=== PATIENT | female | born 1950 | race Caucasian/White ===

== ENCOUNTER 2021-11-18 14:42 | Outpatient (CLI) | payer MEDICARE ==
[2021-11-18 17:08] LABS: Hemoglobin 13.8 g/dL (12.0-15.5)
[2021-11-18 17:31] LABS: Anion Gap 14 mmol/L (10-20); BUN (Urea Nitrogen) 17 mg/dL (9.8-20.1); Calc. Creatinine Clearance 0 mL/min (70-130); Calcium 9.4 mg/dL (7.8-10.44); Carbon Dioxide 23 mmol/L (23-31); Chloride 101 mmol/L (98-107); Estimated GFR 84; Glucose 172 mg/dL (83-110); Potassium 4.2 mmol/L (3.5-5.1); Sodium 134 mmol/L (136-145)
== END 2021-11-18 14:43 | disposition home or self-care (01) ==
LOC: CSHLAB 14:42
PROVIDERS: ATTEND Otolaryngology Otolaryngic Allergy
DX: Z01.812 Encounter for preprocedural laboratory examination (principal); Z20.822 Contact with and (suspected) exposure to COVID-19; G47.33 Obstructive sleep apnea (adult) (pediatric)
CPT/HCPCS: 80048; 85014; 85018; 87811

== ENCOUNTER 2022-01-22 14:19 | Emergency (ER) | payer MEDICARE ==
[2022-01-22 16:02] LABS: #Basophils 0.1 10x3/uL (0.0-0.2); #Eosinphils 0.1 10x3/uL (0.0-0.5); #Monocytes 0.3 10x3/uL (0.0-1.1); #Neutrophils 2.5 10x3/uL (1.5-8.4); %Basophils 1.1 % (0.0-2.0); %Eosinophils 2.7 % (0.0-6.0); %Lymphocytes 33.6 % (18.0-47.0); %Monocytes 5.7 % (0.0-10.0); %Neutrophils 56.7 % (40.0-75.0); Hemoglobin 13.5 g/dL (12.0-15.5); Mean Corpuscular HGB CONC 34.6 g/dL (32.0-36.0); Mean Corpuscular Hemoglobin 30.2 pg (27.0-33.0); Mean Corpuscular Volume 87.2 fl (81.6-98.3); Mean Platelet Volume 10.3 fl (7.4-10.4); Platelet Count 207 10x3/uL (150-450); RBC Distribution Width 11.9 % (11.5-14.5); Red Blood Cell (RBC) Count 4.47 10x6/uL (3.90-5.03); White Blood Cell (WBC) Count 4.4 10x3/uL (3.5-10.5)
[2022-01-22 16:21] LABS: ALT (SGPT) 17 U/L (8-55); AST (SGOT) 20 U/L (5-34); Albumin 4.2 g/dL (3.4-4.8); Alkaline Phosphatase 79 U/L (40-110); Anion Gap 15 mmol/L (10-20); BUN (Urea Nitrogen) 22 mg/dL (9.8-20.1); Bilirubin, Total 0.5 mg/dL (0.2-1.2); Calc. Creatinine Clearance 0 mL/min (70-130); Calcium 9.4 mg/dL (7.8-10.44); Carbon Dioxide 25 mmol/L (23-31); Chloride 101 mmol/L (98-107); Estimated GFR 63; Globulin 2.6 g/dL (2.4-3.5); Glucose 97 mg/dL (83-110); Potassium 4.1 mmol/L (3.5-5.1); Protein, Total 6.8 g/dL (5.8-8.1); Sodium 137 mmol/L (136-145)
[2022-01-22 17:23] LABS: Bilirubin Neg (Negative); Blood, Urine Negative (Negative); Clarity Sl. Cloudy (Clear); Glucose, Urine (Dipstick) Normal (Negative); Ketone, Urine Negative (Negative); Leukocyte 500 (Negative); Nitrite Negative (Negative); Protein, Urine (Dipstick) 15 mg/dl (Neg-Trace); Urobilinogen Normal mg/dL (Less than 2)
[2022-01-22 17:29] LABS: RBC/HPF 0-3 HPF (0-3)
[2022-01-22 17:30] LABS: Bacteria/HPF Rare-Few HPF (None Seen); Mucous/LPF 1+ LPF (<2+)
== END 2022-01-22 17:47 | disposition home or self-care (01) ==
LOC: CSHERS 14:19
DX: N39.0 Urinary tract infection, site not specified (principal); M19.90 Unspecified osteoarthritis, unspecified site; E03.9 Hypothyroidism, unspecified; E78.00 Pure hypercholesterolemia, unspecified; I10 Essential (primary) hypertension
CPT/HCPCS: 36416; 70450; 80053; 81003; 81015; 85025; 93005

== ENCOUNTER 2022-04-06 15:26 | Outpatient (CLI) | payer MEDICARE ==
[2022-04-06 16:20] LABS: Hemoglobin 13.2 g/dL (12.0-15.5)
[2022-04-06 16:49] LABS: Anion Gap 18 mmol/L (10-20); BUN (Urea Nitrogen) 33 mg/dL (9.8-20.1); Calc. Creatinine Clearance 0 mL/min (70-130); Calcium 9.3 mg/dL (7.8-10.44); Carbon Dioxide 23 mmol/L (23-31); Chloride 103 mmol/L (98-107); Estimated GFR 75; Glucose 93 mg/dL (83-110); Sodium 140 mmol/L (136-145)
== END 2022-04-06 15:27 | disposition home or self-care (01) ==
LOC: CSHLAB 15:26
PROVIDERS: ATTEND Obstetrics & Gynecology
DX: Z01.818 Encounter for other preprocedural examination (principal)
CPT/HCPCS: 80048; 85014; 85018; 93005; 93010

== ENCOUNTER 2022-06-08 09:34 | Outpatient (CLI) | payer MEDICARE ==
[2022-06-08 11:09] LABS: Hemoglobin 13.8 g/dL (12.0-15.5); Mean Corpuscular Hemoglobin 30.6 pg (27.0-33.0); Mean Corpuscular Volume 92.7 fl (81.6-98.3); Mean Platelet Volume 10.3 fl (7.4-10.4); Platelet Count 248 10x3/uL (150-450); RBC Distribution Width 12.8 % (11.5-14.5); Red Blood Cell (RBC) Count 4.51 10x6/uL (3.90-5.03); White Blood Cell (WBC) Count 4.5 10x3/uL (3.5-10.5)
[2022-06-08 11:40] LABS: Anion Gap 15 mmol/L (10-20); BUN (Urea Nitrogen) 24 mg/dL (9.8-20.1); Calc. Creatinine Clearance 0 mL/min (70-130); Calcium 9.4 mg/dL (7.8-10.44); Carbon Dioxide 25 mmol/L (23-31); Chloride 105 mmol/L (98-107); Estimated GFR 64; Glucose 120 mg/dL (83-110); Potassium 4.8 mmol/L (3.5-5.1); Sodium 140 mmol/L (136-145)
== END 2022-06-08 09:35 | disposition home or self-care (01) ==
LOC: CSHLAB 09:34
PROVIDERS: ATTEND Otolaryngology Otolaryngic Allergy
DX: Z01.818 Encounter for other preprocedural examination (principal); G47.33 Obstructive sleep apnea (adult) (pediatric)
CPT/HCPCS: 80048; 85027; 93005; 93010

== ENCOUNTER 2022-06-13 06:40 | Day surgery (SDC) | payer MEDICARE ==
[2022-06-09 11:50] VITALS: BMI 32.9
[2022-06-13] MEDS ORDERED: PROPOFOL 20 ML ONE (08:02)
== END 2022-06-13 08:55 | disposition home or self-care (01) ==
LOC: CSHSDC 06:40
PROVIDERS: ATTEND Otolaryngology Otolaryngic Allergy
PROC: 4A1ZXQZ Monitoring of Sleep, External Approach (ICD-10-PCS; principal; 2022-06-13)
DX: G47.33 Obstructive sleep apnea (adult) (pediatric) (principal); I25.10 Atherosclerotic heart disease of native coronary artery without angina pectoris; I10 Essential (primary) hypertension; E11.9 Type 2 diabetes mellitus without complications; E03.9 Hypothyroidism, unspecified; K21.9 Gastro-esophageal reflux disease without esophagitis; E66.9 Obesity, unspecified; Z68.32 Body mass index [BMI] 32.0-32.9, adult; Z79.84 Long term (current) use of oral hypoglycemic drugs; Z79.890 Hormone replacement therapy; Z79.899 Other long term (current) drug therapy; Z90.710 Acquired absence of both cervix and uterus
CPT/HCPCS: J2704

== ENCOUNTER 2022-06-29 09:17 | Observation (INO) | payer MEDICARE ==
[2022-06-29 10:22] LABS: #Basophils 0.1 10x3/uL (0.0-0.2); #Eosinphils 0.2 10x3/uL (0.0-0.5); #Monocytes 0.4 10x3/uL (0.0-1.1); #Neutrophils 4.9 10x3/uL (1.5-8.4); %Basophils 0.7 % (0.0-2.0); %Eosinophils 2.2 % (0.0-6.0); %Lymphocytes 20.6 % (18.0-47.0); %Monocytes 5.4 % (0.0-10.0); %Neutrophils 70.8 % (40.0-75.0); Hemoglobin 13.3 g/dL (12.0-15.5); Mean Corpuscular HGB CONC 34.3 g/dL (32.0-36.0); Mean Corpuscular Hemoglobin 30.7 pg (27.0-33.0); Mean Corpuscular Volume 89.6 fl (81.6-98.3); Platelet Count 222 10x3/uL (150-450); RBC Distribution Width 12.3 % (11.5-14.5); Red Blood Cell (RBC) Count 4.33 10x6/uL (3.90-5.03); White Blood Cell (WBC) Count 6.9 10x3/uL (3.5-10.5)
[2022-06-29 10:40] LABS: ALT (SGPT) 20 U/L (8-55); AST (SGOT) 17 U/L (5-34); Albumin 4.1 g/dL (3.4-4.8); Alkaline Phosphatase 81 U/L (40-110); Anion Gap 16 mmol/L (10-20); BUN (Urea Nitrogen) 20 mg/dL (9.8-20.1); Bilirubin, Total 0.4 mg/dL (0.2-1.2); Calc. Creatinine Clearance 0 mL/min (70-130); Calcium 9.4 mg/dL (7.8-10.44); Carbon Dioxide 25 mmol/L (23-31); Chloride 106 mmol/L (98-107); Estimated GFR 75; Globulin 2.6 g/dL (2.4-3.5); Glucose 156 mg/dL (83-110); Potassium 3.7 mmol/L (3.5-5.1); Protein, Total 6.7 g/dL (5.8-8.1); Sodium 143 mmol/L (136-145)
[2022-06-29 10:54] LABS: Bilirubin Neg (Negative); Blood, Urine Negative (Negative); Clarity Clear (Clear); Glucose, Urine (Dipstick) Normal (Negative); Ketone, Urine Negative (Negative); Leukocyte Negative (Negative); Nitrite Negative (Negative); Protein, Urine (Dipstick) 15 mg/dl (Neg-Trace); Specific Gravity, Urine 1.015 (1.005-1.030); Urobilinogen Normal mg/dL (Less than 2); pH, Urine 6.5 (5.0-9.0)
[2022-06-29] MEDS ORDERED: Ondansetron PF 4 MG/2 ML Vial IVP PRN (14:13)
[2022-06-29] MEDS ORDERED: Acetaminophen 500 MG TAB ONE (15:50)
[2022-06-29] MEDS ORDERED: HumaLOG 300 UNITS/3 ML VIAL SC PRN (17:06)
[2022-06-29] MEDS ORDERED: Dextrose 5% in Water 1,000 ML IV PRN (17:06)
[2022-06-29] MEDS ORDERED: Dextrose 50% Abboject 50 ML SYRINGE SLOW IVP PRN (17:06)
[2022-06-29] MEDS: Sodium Chloride 0.9% 1,000 ML IV SCH (18:30)
[2022-06-29 19:54] VITALS: BMI 34.2
[2022-06-29] MEDS ORDERED: Gabapentin 300 MG CAP PO SCH (22:30)
[2022-06-29] MEDS ORDERED: Losartan Potassium 50 MG TAB PO SCH (22:30)
[2022-06-29] MEDS: Carvedilol 12.5 MG TAB PO SCH (23:14)
[2022-06-29] MEDS: Acetaminophen 325 MG TAB PO PRN (23:55)
[2022-06-30] MEDS: Sodium Chloride 0.9% 1,000 ML IV SCH (05:42)
[2022-06-30] MEDS ORDERED: Levothyroxine Sodium 112 MCG TAB PO SCH (06:00)
[2022-06-30 06:04] LABS: #Basophils 0.1 10x3/uL (0.0-0.2); #Eosinphils 0.2 10x3/uL (0.0-0.5); #Monocytes 0.4 10x3/uL (0.0-1.1); #Neutrophils 4.4 10x3/uL (1.5-8.4); %Basophils 1.2 % (0.0-2.0); %Eosinophils 2.7 % (0.0-6.0); %Lymphocytes 22.5 % (18.0-47.0); %Monocytes 6.2 % (0.0-10.0); %Neutrophils 67.2 % (40.0-75.0); Mean Corpuscular HGB CONC 33.2 g/dL (32.0-36.0); Mean Corpuscular Hemoglobin 30.4 pg (27.0-33.0); Mean Corpuscular Volume 91.7 fl (81.6-98.3); Mean Platelet Volume 10.9 fl (7.4-10.4); Platelet Count 164 10x3/uL (150-450); RBC Distribution Width 12.6 % (11.5-14.5); White Blood Cell (WBC) Count 6.6 10x3/uL (3.5-10.5)
[2022-06-30 06:22] LABS: Anion Gap 15 mmol/L (10-20); BUN (Urea Nitrogen) 17 mg/dL (9.8-20.1); Calc. Creatinine Clearance 87 mL/min (70-130); Calcium 8.9 mg/dL (7.8-10.44); Carbon Dioxide 23 mmol/L (23-31); Cardiac Risk 2.3 (Less than 4.5); Chloride 108 mmol/L (98-107); Cholesterol 116 mg/dl (< 200 Desired); Estimated GFR 81; Glucose 146 mg/dL (83-110); HDL Cholesterol 50 mg/dL (>60 Neg Risk); LDL Cholesterol, Calculated 49 mg/dL; Sodium 142 mmol/L (136-145); Triglycerides 86 mg/dL (Less than 150)
[2022-06-30 07:06] LABS: SARS-CoV-2 NAA Rapid Test Not Detected (NotDetected)
[2022-06-30] MEDS: Carvedilol 12.5 MG TAB PO SCH (11:20)
[2022-06-30 12:02] VITALS: BP 139/63; TEMP 97.9
[2022-06-30] MEDS: Acetaminophen 325 MG TAB PO PRN (13:07)
[2022-06-30] MEDS ORDERED: Losartan Potassium 50 MG TAB PO SCH (21:00)
[2022-06-30] MEDS ORDERED: Gabapentin 300 MG CAP PO SCH (21:00)
== END 2022-06-30 14:10 | disposition home or self-care (01) ==
LOC: CSHERS 09:17 → INTOOBSV 18:08 → CSHTELE 18:08
PROVIDERS: ADMIT Family Medicine; ATTEND Hospitalist
DX: R41.82 Altered mental status, unspecified (principal); E11.9 Type 2 diabetes mellitus without complications; E03.9 Hypothyroidism, unspecified; I10 Essential (primary) hypertension; I25.10 Atherosclerotic heart disease of native coronary artery without angina pectoris; I63.9 Cerebral infarction, unspecified; M79.7 Fibromyalgia; Z79.84 Long term (current) use of oral hypoglycemic drugs; Z79.899 Other long term (current) drug therapy; Z88.5 Allergy status to narcotic agent; Z79.02 Long term (current) use of antithrombotics/antiplatelets; Z20.822 Contact with and (suspected) exposure to COVID-19
CPT/HCPCS: 70450; 70551; 80048; 80053; 80061; 81003; 82962 ×2; 83605; 84484; 85025 ×2; 87086; 93005; 97116; 99285; G0378 ×3; U0002; 36415; 36416; J7050

== ENCOUNTER 2022-07-25 06:25 | Day surgery (SDC) | payer MEDICARE ==
[2022-07-21 12:59] VITALS: BMI 32.0
[2022-07-25] MEDS ORDERED: PROPOFOL 20 ML ONE ×2 (10:03→10:47)
[2022-07-25] MEDS ORDERED: Fentanyl 100 MCG/2 ML VIAL ONE ×2 (10:03→10:47)
[2022-07-25] MEDS ORDERED: Dexamethasone 20 MG/5 ML VIAL ONE (10:05)
[2022-07-25] MEDS ORDERED: Succinylcholine 200 MG/10 ml SYRINGE FS ONE (10:05)
[2022-07-25] MEDS ORDERED: Ondansetron PF 4 MG/2 ML Vial ONE (10:05)
[2022-07-25] MEDS ORDERED: EPINEPHrine 1 MG/ML AMP ONE (10:15)
[2022-07-25] MEDS ORDERED: CEFAZOLIN 2 GM VIAL ONE (10:30)
[2022-07-25] MEDS ORDERED: Lidocaine 1% w/Epinephrine 1:100K 20 ML VIAL ONE (10:30)
[2022-07-25] MEDS ORDERED: ePHEDrine Sulfate 50 MG/10 ML VIAL ONE ×2 (10:57→11:13)
[2022-07-25] MEDS ORDERED: PHENYLEPHRINE-NS 100 MCG/ML 10 ML SYRINGE ONE ×2 (11:50→12:40)
[2022-07-25] MEDS ORDERED: traMADol HCl 50 MG TAB ONE (14:13)
== END 2022-07-25 14:25 | disposition home or self-care (01) ==
LOC: CSHSDC 06:25
PROVIDERS: ATTEND Otolaryngology Otolaryngic Allergy
PROC: XWHD7Q7 Insertion of Neurostimulator Lead into Mouth and Pharynx, Via Natural or Artificial Opening, New Technology Group 7 (ICD-10-PCS; principal; 2022-07-25)
DX: G47.33 Obstructive sleep apnea (adult) (pediatric) (principal); H61.21 Impacted cerumen, right ear; I10 Essential (primary) hypertension; F32.A Depression, unspecified; J45.909 Unspecified asthma, uncomplicated; E03.9 Hypothyroidism, unspecified; E11.9 Type 2 diabetes mellitus without complications; I25.10 Atherosclerotic heart disease of native coronary artery without angina pectoris; Z88.5 Allergy status to narcotic agent; Z91.048 Other nonmedicinal substance allergy status; Z79.899 Other long term (current) drug therapy
CPT/HCPCS: 70360; C1787; C1820; C1898; J0171; J1100; J2405; J2704; J3010

== ENCOUNTER 2022-08-07 14:34 | Outpatient (CLI) | payer MEDICARE | END 2022-08-07 14:35 | disposition home or self-care (01) | LOC: CSHRAD 14:34 | PROVIDERS: ATTEND Family Medicine | DX: M25.531 Pain in right wrist (principal) ==

== ENCOUNTER 2024-11-20 17:01 | Emergency (ER) | payer MEDICARE ==
[~2024-11-20 17:01] MED LIST: Iopamidol 300 61% 100 ML VIAL FS ONE
[2024-11-20 18:49] LABS: #Basophils 0.04 10x3/uL (0.0-0.2); #Eosinophils 0.04 10x3/uL (0.0-0.5); #Monocytes 0.29 10x3/uL (0.0-1.1); #Neutrophils 4.85 10x3/uL (1.5-8.4); %Basophils 0.6 % (0.0-2.0); %Eosinophils 0.6 % (0.0-6.0); %Lymphocytes 19.7 % (18.0-47.0); %Monocytes 4.5 % (0.0-10.0); %Neutrophils 74.4 % (40.0-75.0); Hematocrit 42.2 % (34.9-44.5); Hemoglobin 14.2 g/dL (12.0-15.5); Mean Corpuscular Hemoglobin 32.7 pg (27.0-33.0); Mean Corpuscular Volume 97.2 fL (81.6-98.3); Platelet Count 194 10x3/uL (150-450); Red Blood Cell (RBC) Count 4.34 10x6/uL (3.90-5.03); White Blood Cell (WBC) Count 6.51 10x3/uL (3.5-10.5)
[2024-11-20 18:50] LABS: ALT (SGPT) 19 U/L (Less than 34); AST (SGOT) 22 U/L (11-34); Albumin 4.2 g/dL (3.1-4.5); Alkaline Phosphatase 61 U/L (40-110); Anion Gap 16 mmol/L (10-20); BUN (Urea Nitrogen) 17 mg/dL (9.8-20.1); Bilirubin, Total 0.5 mg/dL (0.3-1.2); CK (CPK) 37 U/L (29-168); Calc. Creatinine Clearance 0 mL/min (70-130); Calcium 9.2 mg/dL (7.8-10.44); Carbon Dioxide 24 mmol/L (23-31); Chloride 103 mmol/L (98-107); Globulin 2.9 g/dL (2.4-3.5); Glucose 119 mg/dL (83-110); Magnesium 2.1 mg/dL (1.6-2.6); Potassium 3.9 mmol/L (3.5-5.1); Sodium 139 mmol/L (136-145)
[2024-11-20 18:54] LABS: Troponin I Less than 0.010 ng/mL (< 0.028)
[2024-11-20 19:03] LABS: Lipase 22 U/L (8-78)
[2024-11-20 19:10] LABS: Glucose, Urine (Dipstick) >=1000 mg/dL (Negative); Leukocyte Negative (Negative); Protein, Urine (Dipstick) Negative (Neg-Trace); Specific Gravity, Urine 1.010 (1.005-1.030)
[2024-11-20 19:21] LABS: Bacteria/HPF Rare-Few HPF (None Seen); CAUTI Indications for Culture Alt mental st,lethar; RBC/HPF None Seen HPF (0-3); Urine Culture Reflex No No; WBC/HPF 0-3 HPF (0-3)
[2024-11-20] MEDS ORDERED: Lidocaine Viscous Sol 2% 15 ml UD Cup ONE (19:26)
[2024-11-20] MEDS ORDERED: Milk Of Magnesia 30 ML UDCUP ONE (19:26)
== END 2024-11-20 20:23 | disposition home or self-care (01) ==
LOC: CSHERS 17:01
DX: R11.2 Nausea with vomiting, unspecified (principal); I10 Essential (primary) hypertension
CPT/HCPCS: 70450; 71045; 74177; 81001; 82550; 83690; 83735; 84484; 93005; Q9967; 36415; 80053; 84443; 85025